=== PATIENT | female | born 1965 | race American Indian/Alaskan Native ===

== ENCOUNTER 2016-05-25 06:55 | Day surgery (SDC) | payer BC ==
--- NOTE | 2016-05-25 07:42 | Anesthesia Consultation ---
Anesthesia Consult and Med Hx Date of service: 05/25/16 - Airway Anesthetic Teeth Evaluation: Good (multiple missing teeth) ROM Head & Neck: Adequate Mental/Hyoid Distance: Adequate Mallampati Class: Class I Intubation Access Assessment: Good - Pulmonary Exam CTA: Yes (blbs clear) - Cardiac Exam Cardiac Exam: RRR - Pre-Operative Health Status ASA Pre-Surgery Classification: ASA2 Proposed Anesthetic Plan: General - Pulmonary Hx Smoking: No Hx Asthma: No Hx Respiratory Symptoms: No SOB: No COPD: No Home Oxygen Therapy: No Hx Pneumonia: No Hx Sleep Apnea: No - Cardiovascular System Hx Hypertension: Yes (FOR 2 MTHS, DR. HADLEY WARREN- PCP) - Central Nervous System Hx Neuromuscular Disorder: No Hx Seizures: No CVA: No Hx Back Pain: No Hx Psychiatric Problems: No - Gastrointestinal Hx Ulcer: No Hx Gastroesophageal Reflux Disease: No - Endocrine Hx Renal Disease: No Hx End Stage Renal Disease: No Hx Cirrhosis: No Hx Liver Disease: No Hx Insulin Dependent Diabetes: Yes (bs 102) Hx Non-Insulin Dependent Diabetes: No Hx Thyroid Disease: No Hx Hypothyroidism: No Hx Hyperthyroidism: No - Hematic Hx Anemia: No Hx Sickle Cell Disease: No - Other Systems Hx Cancer: No
[2016-05-25] MEDS ORDERED: SUBLIMAZE IV PRN (07:43)
[2016-05-25] MEDS ORDERED: PERCOCET 5/325 PO PRN (07:43)
[2016-05-25] MEDS ORDERED: DILAUDID IV PRN (07:43)
[2016-05-25] MEDS ORDERED: ZOFRAN IV PRN (07:43)
[2016-05-25] MEDS ORDERED: TORADOL IV PRN (07:43)
--- NOTE | 2016-05-25 07:43 | Anesthesia Day of Surgery ---
Anesthesia Day of Surgery - Day of Surgery Patient Examined: Yes Patient H&P Reviewed: Yes Patient is NPO: Yes Beta Blockers: No Cardiac Clearance: No (n/a) Pulmonary Clearance: No (n/a)
[2016-05-25] MEDS ORDERED: XYLOCAINE 1% 20 mL ONE (07:45)
[2016-05-25] MEDS ORDERED: PEPCID IV NR (08:00)
[2016-05-25] MEDS ORDERED: VANCOMYCIN/NS 1 GM/250 ML 1 GM/250 ML BAG IV NR (08:00)
[2016-05-25] MEDS ORDERED: NACL 0.9% 1000 ML 1,000 ML IV SCH ×2 (08:00)
[2016-05-25] MEDS ORDERED: ZOFRAN IV NR (08:00)
[2016-05-25] MEDS ORDERED: VERSED IV NR (08:00)
--- NOTE | 2016-05-25 09:07 | Procedure Note ---
Date of procedure: 05/25/16 Pre-op diagnosis: lt breast lesion Post-op diagnosis: same Procedure: needle loc Findings: n/a Anesthesia: local Surgeon: ORI HERNÁNDEZ Estimated blood loss: none Pathology: none Condition: stable (surgery)
[2016-05-25] MEDS ORDERED: DIPRIVAN 10 MG/ML IV ONE (09:15)
[2016-05-25] MEDS ORDERED: DILAUDID ONE (09:16)
[2016-05-25] MEDS ORDERED: XYLOCAINE MPF 2% ONE (09:16)
--- NOTE | 2016-05-25 09:49 | Mammography Report ---
The left breast needle localization: The patient presents with a clip and a small nodule just above the nipple in the anterior breast. Freehand localization was performed. Following injection of 1% lidocaine in the periareolar region a 3 cm Womack needle was introduced. The tip is located just proximal and medial to the target. Following placement of the wire additional mammogram images confirmed final positioning of the wire relative to the lesion. There were no patient complications encountered.
[2016-05-25] MEDS ORDERED: MARCAINE 0.25% INFILTRATI ONE (11:11)
[2016-05-25] MEDS ORDERED: WATER FOR IRRIG STERILE IR ONE (11:11)
[2016-05-25] MEDS ORDERED: DECADRON ONE (11:42)
[2016-05-25] MEDS ORDERED: NEO SYNEPHRINE/NS Syringe(OR USE) IV ONE (11:55)
--- NOTE | 2016-05-25 12:18 | Mammography Report ---
Operative specimen mammogram: A single surgical specimen is submitted it includes the localizing wire and the targeted marker. A soft tissue mass is present adjacent to the marker at the margin of the specimen.
--- NOTE | 2016-05-25 12:35 | Short Stay Summary ---
Short Stay Documentation Date of service: 05/25/16 - History H&P: obtained from office - Allergies and Medications Current Medications: Allergies Penicillins Allergy (Verified 05/18/16 14:10) Hives, DIFFICULTY BREATHING Home Medications Medication Instructions Recorded Confirmed Last Taken Type Ergocalciferol [Vitamin D2] 1 cap PO QWEEK 05/18/16 05/25/16 05/22/16 History Insulin Degludec [Tresiba 68 unit SQ QHS 05/18/16 05/25/16 05/24/16 22:00 History Flextouch U-100] 68units Metformin HCl [Metformin HCl ER] 1,500 mg PO QHS 05/18/16 05/25/16 05/22/16 History Metoprolol [Lopressor] 25 mg PO QHS 05/18/16 05/25/16 05/24/16 22:00 History 25mg Simvastatin [Zocor TAB] 20 mg PO QHS 05/18/16 05/25/16 05/24/16 22:00 History 20mg Sulfamethoxazole/Trimethoprim 1 each PO BID 05/18/16 05/25/16 05/24/16 22:00 History [Sulfamethoxazole-Tmp Ss Tablet] 1 tab Clindamycin [Clindamycin CAP] 300 mg PO Q6H #28 capsule 05/25/16 Unknown Rx HYDROcodone/APAP 5-325 [[place] 1 each PO Q6HR PRN #30 tablet 05/25/16 Unknown Rx 5/325] Active Medications Famotidine (Pepcid) 20 mg IV PREOP NR Stop: 05/25/16 23:59 Last Admin: 05/25/16 09:24 Dose: 20 mg Fentanyl (Sublimaze) 50 mcg IV Q5MIN PRN PRN Reason: Pain , Severe (7-10) Stop: 05/25/16 16:00 Hydromorphone HCl (Dilaudid) 0.25 mg IV Q10MIN PRN PRN Reason: Pain, Moderate (4-6) Stop: 05/25/16 16:00 Vancomycin HCl (Vancomycin/Ns 1 Gm/250 Ml) 1 gm in 250 mls @ 167.007 mls/hr IV PREOP NR PRN Reason: Protocol Stop: 05/25/16 23:59 Last Admin: 05/25/16 09:59 Dose: 167.007 mls/hr Sodium Chloride (Nacl 0.9% 1000 Ml) 1,000 mls @ 100 mls/hr IV DIRECT JAIME Last Admin: 05/25/16 09:24 Dose: 100 mls/hr Midazolam HCl (Versed) 2 mg IV PREOP NR Stop: 05/25/16 23:59 Ondansetron HCl (Zofran) 4 mg IV PREOP NR Stop: 05/25/16 23:59 Last Admin: 05/25/16 09:25 Dose: 4 mg - Brief post op/procedure progress note Date of procedure: 05/25/16 Pre-op diagnosis: Left breast atypical papilloma Post-op diagnosis: same Procedure: Left needle localization excisional biopsy Anesthesia: GETA Findings: wire and clip present within radiograph specimen Surgeon: JIGNESH MEEKS Estimated blood loss: minimal Pathology: list (left needle localization excisional biopsy) Specimen disposition: to lab Condition: stable - Disposition Condition at discharge: Good Disposition: DISCHARGED TO HOME OR SELFCARE Short Stay Discharge Plan Activity: other (no heavy lifting) Diet: regular, diabetic Wound: other (keep incision clean and dry and may shower in 24 hours; no baths, pools or lakes) Follow up with: HADLEY WARREN MD [Primary Care Provider] - 7 Days JIGNESH MEEKS MD [Staff Physician] - 7 Days Prescriptions: Clindamycin [Clindamycin CAP] 300 mg PO Q6H #28 capsule HYDROcodone/APAP 5-325 [[place] 5/325] 1 each PO Q6HR PRN #30 tablet PRN Reason: Pain
[2016-05-25 14:16] VITALS: BP 124/80
--- NOTE | 2016-05-25 15:52 | Operative Report ---
Operative Report Operative Report: Date of procedure: 05/25/2016 Pre-operative diagnosis: Left breast atypical intraductal papilloma Post-operative diagnosis: Same Procedure name(s): Left needle localization terminal duct excisional biopsy Surgeon: Johana Armstrong M.D. Anesthesia: Gen. Findings: Wire and clip present within radiograph specimen Drains: None Complications: None Disposition: PACU in good condition Indications for operative procedure: This is a 50-year-old -[place] lady with recent left breast ultrasound-guided needle core biopsy performed at the 12:30 position about 1 cm from the nipple with findings of an atypical papilloma. Recommendations were to proceed with an excisional biopsy. Procedure in Detail: Radiology placed wire to localize area of concern. Patient was then taken to the operating room and was laid supine. Gen. anesthesia was administered. The left breast was prepped and draped in the normal sterile operative fashion. The wire was identified. A skin incision was made around the lateral aspect of the nipple areolar complex with a 15 blade knife with dissection taken down to the subcutaneous tissues tissues. Skin flaps were then made posterior to the nipple superiorly, laterally, inferiorly and medially. The area of concern appropriately removed from the breast with the aid of the Bovie cautery. The ultrasound was then used to ensure the area of concern was present within specimen. Radiograph specimen of wire and clip present as well. Hemostasis was noted. The subcutaneous tissues were approximated and closed. The skin incision around the nipple areolar complex was closed in a running like fashion using a 4-0 Monocryl and skin affix. She tolerated surgery very well and was awakened from anesthesia without complications and transferred to PACU in good condition.
--- NOTE | 2016-05-25 16:11 | Post Anesthesia Evaluation ---
- Post Anesthesia Evaluation Patient Participated: Yes Airway Patent: Yes Stable Respiratory Function: Yes Nausea/Vomiting: No Temp > 96.8F: Yes Pain Manageable: Yes Adequeate Hydration: Yes Anesthesia Complications: No
== END 2016-05-25 14:20 | disposition home or self-care (01) ==
LOC: OR 06:55
PROVIDERS: ATTEND Surgery
DX: D24.2 Benign neoplasm of left breast (principal); I10 Essential (primary) hypertension; E11.9 Type 2 diabetes mellitus without complications; D64.9 Anemia, unspecified; Z79.4 Long term (current) use of insulin; Z79.899 Other long term (current) drug therapy
CPT/HCPCS: 19125; 19281; 76098; 82962; 88307; J1100; J1170; J2370; J2405; J2704; J3370; J7030; J2250

== ENCOUNTER 2016-12-27 14:48 | Outpatient (CLI) | payer BC ==
--- NOTE | 2016-12-27 15:41 | Mammography Report ---
BILATERAL DIGITAL SCREENING MAMMOGRAM with CAD: 12/27/16 14:48:00 CLINICAL: Routine screening.Status post left surgical excision of a benign intraductal papilloma 05/25/16. COMPARISON:04/11/16 FINDINGS: The breasts are almost entirely fatty. No mass, architectural distortion or suspicious calcifications. IMPRESSION: No mammographic evidence of malignancy. BI-RADS CATEGORY: 1 - - Negative RECOMMENDATION: Routine mammographic screening in one year. COMMENT: Patient follow-up letters are generated by our [employer] application.
== END 2016-12-27 14:49 | disposition home or self-care (01) ==
LOC: SPVWC 14:48
PROVIDERS: ATTEND Surgery
DX: Z12.31 Encounter for screening mammogram for malignant neoplasm of breast (principal)
CPT/HCPCS: 77067; G0202

== ENCOUNTER 2018-01-02 09:56 | Outpatient (CLI) | payer BC ==
--- NOTE | 2018-01-02 10:33 | Mammography Report ---
BILATERAL DIGITAL SCREENING MAMMOGRAM with CAD: 01/02/18 09:56:00 CLINICAL: Routine screening. COMPARISON:12/27/16 FINDINGS: The breasts are almost entirely fatty. No mass, architectural distortion or suspicious calcifications. IMPRESSION: No mammographic evidence of malignancy. BI-RADS CATEGORY: 1 - - Negative RECOMMENDATION: Routine mammographic screening in one year. COMMENT: Patient follow-up letters are generated by our [employer] application.
== END 2018-01-02 09:57 | disposition home or self-care (01) ==
LOC: SPVWC 09:56
PROVIDERS: ATTEND Surgery
DX: Z12.31 Encounter for screening mammogram for malignant neoplasm of breast (principal); I10 Essential (primary) hypertension; E78.00 Pure hypercholesterolemia, unspecified; Z90.49 Acquired absence of other specified parts of digestive tract
CPT/HCPCS: 77067